=== PATIENT | male | born 1950 | race Hispanic/Latino ===

== ENCOUNTER 2022-01-09 13:55 | Emergency (ER) | payer MEDICARE, OTHER ==
--- OUTSIDE RECORDS SUMMARY | 2022-01-09 13:58 | XMS REPORT | Continuity of Care Document ---
:1950 Author Organization [facility] t Address [address] [place] [address] Care Team Providers Name Role Phone Lab, Adc Fam Pob I Attending Clinician Unavailable Vasu Love Attending Clinician VASU PAEZ Attending Clinician Unavailable Rosanna Jones Attending Clinician ROSANNA NUÑEZ Attending Clinician Unavailable Doctor Unassigned, [place] Attending Clinician Unavailable Payers Payer Name Policy Type Policy Number Effective Date Expiration Date S ource Problems This patient has no known problems. Allergies, Adverse Reactions, Alerts Allergy Allergy Status Severity Reaction(s) Onset Inactive Treating Comm ents Source Name Type Date Date Clinician NO KNOWN Drug Active Univers ALLERGIE Class ity of [facility] Social History Social Habit Start Date Stop Date Quantity Comments Source [facility] to [facility]-CoV-2 [facility] sure [facility] At [facility] Smoking Status Start Date Stop Date Source Never smoker [facility] Medications Ordered Filled Start Stop Current Ordering Indication Dosage Frequency Signature Comments Components Source Medication Medication Date Date Medication? Clinician (SIG) Name Name metroNIDAZO 2016- Yes 500mg Take 1 Uni vers LE 500 mg 8-30 tablet by ity o f tablet 00:00: mouth (two) Medical times Branch daily. traMADOL 50 Yes 50mg Take 1 Univ ers mg tablet 8-30 tablet by ity o f 00:00: mouth 00 every 6 Medical (six) Branch hours as needed (pain not relieved by acetaminop hen). metroNIDAZO 2016-0 Yes 500mg Take 1 Uni vers LE 500 mg 8-30 tablet by ity o f tablet 00:00: mouth 2 (two) Medical times Branch daily. traMADOL 50 2016- Yes 50mg Take 1 Univ ers mg tablet 8-30 tablet by ity o f 00:00: mouth [place] 00 every 6 Medical (six) Branch hours as needed (pain not relieved by acetaminop hen). metroNIDAZO 2017-0 Yes 500mg Take 1 Uni vers LE 500 mg 8-30 tablet by ity o f tablet 00:00: mouth 2 [place] 00 (two) Medical times Branch daily. traMADOL 50 2017-0 Yes 50mg Take 1 Univ ers mg tablet 8-30 tablet by ity o f 00:00: mouth [place] 00 every 6 Medical (six) Branch hours as needed (pain not relieved by acetaminop hen). metFORMIN 2017 Yes 1000mg Take 1,000 Univers 1,000 mg 7-06 mg by ity of tablet 14:53: mouth 2 [place] 08 (two) Medical times Branch daily with meals. triamterene Yes 1{tbl} Take 1 Un sayra -hydrochlor 7-06 tablet by ity of othiazid 14:53: mouth [place] 37.5-25 mg 08 daily. Medical tablet Branch CALCIUM Yes Take by Univers CARBONATE/V 7-06 mouth. ity of ITAMIN D3 14:53: [place] (VITAMIN 08 Medical D-3 ORAL) Branch vitamin Yes 1000ug Take 1,000 Un sayra B-12 1,000 7-06 mcg by ity of mcg tablet 14:53: mouth [place] 08 daily. Medical Branch metFORMIN Yes 1000mg Take 1,000 Univers 1,000 mg 7-06 mg by ity of tablet 14:53: mouth 2 08 (two) Medical times Branch daily with meals. triamterene 2016- Yes 1{tbl} Take 1 Un sayra -hydrochlor 7-06 tablet by ity of othiazid 14:53: mouth [place] 37.5-25 mg 08 daily. Medical tablet Branch CALCIUM 0 Yes Take by Univers CARBONATE/V 7-06 mouth. ity of ITAMIN D3 14:53: [place] (VITAMIN 08 Medical D-3 ORAL) Branch vitamin 20170 Yes 1000ug Take 1,000 Un sayra B-12 1,000 7-06 mcg by ity of mcg tablet 14:53: mouth [place] 08 daily. Medical Branch metFORMIN Yes 1000mg Take 1,000 Univers 1,000 mg 7-06 mg by ity of tablet 14:53: mouth 2 [place] 08 (two) Medical times Branch daily with meals. triamterene 2017 Yes 1{tbl} Take 1 Un sayra -hydrochlor 7-06 tablet by ity of othiazid 14:53: mouth [place] 37.5-25 mg 08 daily. Medical tablet Branch CALCIUM Yes Take by Univers CARBONATE/V 7-06 mouth. ity of ITAMIN D3 14:53: [place] (VITAMIN 08 Medical D-3 ORAL) Branch vitamin Yes 1000ug Take 1,000 Un sayra B-12 1,000 7-06 mcg by ity of mcg tablet 14:53: mouth [place] 08 daily. Medical Branch isosorbide Yes 30mg Take 30 mg U nivers mononitrate 7-06 by mouth. ity of 30 mg 24 hr 14:53: [place] tablet Medical Branch Levothyroxi Yes Take by Uni vers ne 125 mcg 7-06 mouth. ity of capsule 14:53: [address] lisinopril Yes 20mg Take 20 mg U nivers 20 mg 7-06 by mouth ity of tablet 14:53: daily. [address] Branch lovastatin Yes 20mg Take 20 mg U nivers 20 mg 7-06 by mouth ity of tablet 14:53: at [place] [address] bedtime. Medical Branch Fenofibrate Yes Take by Uni vers 160 mg 7-06 mouth. ity of tablet 14:53: [address] Branch glimepiride Yes 2mg Take 2 mg U nivers 2 mg tablet 7-06 by mouth ity of 14:53: daily with [place] [address] breakfast. Medical Branch isosorbide Yes 30mg Take 30 mg U nivers mononitrate 7-06 by mouth. ity of 30 mg 24 hr 14:53: [place] tablet [address] [place] [address] Branch Levothyroxi Yes Take by Uni vers ne 125 mcg 7-06 mouth. ity of capsule 14:53: [address] lisinopril 2016- Yes 20mg Take 20 mg U nivers 20 mg 7-06 by mouth ity of tablet 14:53: daily. [address] lovastatin 0 Yes 20mg Take 20 mg U nivers 20 mg 7-06 by mouth ity of tablet 14:53: at [place] [address] bedtime. Medical Branch Fenofibrate Yes Take by Uni vers 160 mg 7-06 mouth. ity of tablet 14:53: Medical Branch glimepiride 2016- Yes 2mg Take 2 mg U nivers 2 mg tablet 7-06 by mouth ity of 14:53: daily with breakfast. Medical Branch isosorbide 2017 Yes 30mg Take 30 mg U nivers mononitrate 706 by mouth. ity of 30 mg 24 hr 14:53: [place] tablet Medical Branch Levothyroxi Yes Take by Uni vers ne 125 mcg 7-06 mouth. ity of capsule 14:53: Medical Branch lisinopril Yes 20mg Take 20 mg U nivers 20 mg 7-06 by mouth ity of tablet 14:53: daily. Medical Branch lovastatin Yes 20mg Take 20 mg U nivers 20 mg 7-06 by mouth ity of tablet 14:53: at [place] [address] bedtime. Medical Branch Fenofibrate Yes Take by Uni vers 160 mg 7-06 mouth. ity of tablet 14:53: Medical Branch glimepiride Yes 2mg Take 2 mg U nivers 2 mg tablet 7-06 by mouth ity of 14:53: daily with breakfast. Medical Branch aspirin 325 Yes 325mg Take 325 U nivers mg tablet 7-06 mg by ity of 14:53: mouth [place] 06 daily. Medical Branch clopidogrel Yes 75mg Take 75 mg Univers 75 mg 7-06 by mouth ity of tablet 14:53: daily. Medical Branch aspirin 325 2017 Yes 325mg Take 325 U nivers mg tablet 7-06 mg by ity of 14:53: mouth [place] 06 daily. Medical Branch clopidogrel 2017 Yes 75mg Take 75 mg Univers 75 mg 7-06 by mouth ity of tablet 14:53: daily. Medical Branch aspirin 325 20170 Yes 325mg Take 325 U nivers mg tablet 7-06 mg by ity of 14:53: mouth [place] 06 daily. Medical Branch clopidogrel Yes 75mg Take 75 mg Univers 75 mg 7-06 by mouth ity of tablet 14:53: daily. Medical Branch diclofenac 20170 Yes 75mg Take 1 Unive rs 75 mg EC 7-06 tablet by ity of tablet 00:00: mouth 2 (two) Medical times Branch daily with meals. diclofenac 2017-0 Yes 75mg Take 1 Unive rs 75 mg EC 7-06 tablet by ity of tablet 00:00: mouth 2 (two) Medical times Branch daily with meals. diclofenac 2017-0 Yes 75mg Take 1 Unive rs 75 mg EC 7-06 tablet by ity of tablet 00:00: mouth 2 (two) Medical times Branch daily with meals. Procedures This patient has no known procedures. Encounters Start End Encounter Admission Attending Care Care Encounter Source Date/Time Date/Time Type Type Clinicians Facility Department ID 2020-05-20 2020-05-20 Laboratory Lab, [facility] 1.2. [id number] Univers 15:22:09 15:42:09 Only Vasu Paez [employer] [id number] ity of [place] [id number] [place] as Professio [id number] Ma dic[address] 2020-05-20 2020-05-20 Outpatient [facility] [id number] Univers 15:20:00 15:20:00 [id number] ity [facility] 2020-05-20 2020-05-20 [facility] [id number] Univers 15:20:00 15:20:00 VASU [facility] 2020-02-28 2020-02-28 Laboratory Lab, [facility] Fam Po I [facility] 1.2. [id number] Univers 08:56:10 09:16:10 Only RcTereRosanna [employer] [id number] ity of [place] 4.2.7.2.686 [place] as Professio [phone] Ma dical nal [address] 2020-02-28 2020-02-28 Outpatient [facility] [id number] Univers 09:00:00 09:00:[id number] [facility] 2020-02-28 Outpatient R [facility] [id number] Univers 09:00:00 09:00:00 [facility] 2020-02-28 2020-02-28 Letter Doctor ANKITA [id number] 00:00:00 00:00:00 (Out) Unassigned, KHANH 350.1.13.10 ity of [place] [facility] 4.2.7.2.686 [place] as [phone] [address] Results Test Description Test Time Test Comments Results Result Comments Source PSA, TOTAL 2021-11-03 06:37:18 Test Item Value Reference Range Interpretation Comme nts PSA, TOTAL (test code 2.83 NG/ML See_Comment NOTE: Methodology is Aleks Marlene = 2606) Electrochemilum inescence Immunoassay traceable to O reference standard 96/760. UNLESS OTHERWISE INDICATED, ALL TESTING PERFORM ED [facility], [facility]. [address] [place] [address] [employer] DIRECTOR: LARY DOUGLAS M.D. CLIA NUMBER [id number] CAP ACCREDITATI ON NO. [Automated mess age] The system which generated this result transmitted reference range : <=4.00. The reference range was not u sed to interpret this result as tina l/abnormal. OCCULT BLD,FECAL,IMMUNOASSAY [id number] 09:49:41 Test Item Value Reference Range Interpretation Comments OCCULT BLD, FECAL NEGATIVE NEGATIVE UNLESS OT HERWISE (test code = 09960) INDICATE D, ALL TESTING PERFORMED [facility] PATHOLOGY [employer] [facility]. [address] [place] [address] [employer] DIRECTOR: LARY DOUGLAS M.D. CLIA NUMBER [id number] CAP ACCREDITATION N O. [id number] VITAMIN [id number] 06:32:49 Test Item Value Reference Range Interpretation Comments VITAMIN B-12 (test 693 PG/ML 200-950 UNLESS O THERWISE code = 2840) INDICATED, ALL TESTING PERFORMED [facility] [employer]. [address] [place] [address] [employer] T[place] DIRECTOR: LARY DOUGLAS M.D. CLIA NUMBER [id number] CAP ACCREDITATION N O. [id number] CBC W/AUTO DIFF WITH [id number] 06:29:27 Test Item Value Reference Range Interpretation Comments WBC (test code = 7.1 K/UL 3.5-11.0 1001) RBC (test code = 4.39 M/UL 4.50-6.10 L 1002) HEMOGLOBIN (test code 12.6 G/DL 13.5-17.0 L = 1003) HEMATOCRIT (test code 37.1 % 40.0-51.0 L = 1004) MCV (test code = 84.5 fL 80.0-99.0 1005) MCH (test code = 28.7 PG 25.0-33.0 1006) MCHC (test code = 34.0 G/DL 31.0-36.0 1007) RDW (test code = 12.9 % 11.5-15.0 1038) NEUTROPHILS (test 53.9 % code = 1008) LYMPHOCYTES (test 34.8 % code = 1010) MONOCYTES (test code 8.6 % = 1011) EOSINOPHILS (test 1.6 % code = 1012) BASOPHILS (test code 0.8 % = 1013) IMMATURE GRANULOCYTES 0.3 % (test code = 1036) NUCLEATED RBCS (test 0.0 /100 WBC'S See_Comment [Aut omated code = 1065) message] The sy stem which generated this result transmitted reference range : 0.0. The refere nce range was not u sed to interpret th is result as normal/abnormal . PLATELET COUNT (test 237 K/UL 130-400 code = 1015) ABSOLUTE NEUTROPHILS 3.82 K/UL 1.50-7.50 (test code = 1066) ABSOLUTE LYMPHOCYTES 2.47 K/UL 1.00-4.00 (test code = 1067) ABSOLUTE MONOCYTES 0.61 K/UL 0.20-1.00 (test code = 1068) ABSOLUTE EOSINOPHILS 0.11 K/UL 0.00-0.50 (test code = 1040) ABSOLUTE BASOPHILS 0.06 K/UL 0.00-0.20 (test code = 1069) ABS IMMATURE 0.02 K/UL 0.00-0.10 GRANULOCYTES (test code = 1020) ABS NUCLEATED RBCS 0.00 K/UL 0.00-0.11 (test code = 05432)
[2022-01-09] MEDS ORDERED: HYDROCODONE/APAP 7.5/325 MG TAB ONE (14:53)
--- NOTE | 2022-01-09 14:59 | RAD REPORT ---
EXAM DESCRIPTION: RAD - Knee Right 3 View - 01/09/2022 2:35 pm CLINICAL HISTORY: Right knee pain FINDINGS: No fracture or dislocation is seen. Mild to moderate osteoarthritis medial compartment consisting of osteophytes and joint space narrowin g
--- NOTE | 2022-01-09 15:05 | ER ---
Nurse's Notes [facility] Name: Atilio Levy Jr Age: 71 yrs Sex: Male : 1950 Arrival Date: 01/09/2022 Time: 14:01 Bed 11 Private MD: Joe Lopez R Diagnosis: Pain in right knee Presentation: 01/09 14:10 Chief complaint: Patient states: my right knee is acting up X 2 weeks but now the pain iw is moving up to my hip , previous knee surgery ten years ago. Coronavirus screen: At this time, the client does not indicate any symptoms associated with coronavirus-19. Ebola Screen: Patient negative for fever greater than or equal to 101.5 degrees Fahrenheit, and additional compatible Ebola Virus Disease symptoms Patient denies exposure to infectious person. Patient denies travel to an Ebola-affected area in the 21 days before illness onset. No symptoms or risks identified at this time. Initial Sepsis Screen: Does the patient meet any 2 criteria? No. Patient's initial sepsis screen is negative. Does the patient have a suspected source of infection? No. Patient's initial sepsis screen is negative. Risk Assessment: Do you want to hurt yourself or someone else? Patient reports no desire to harm self or others. Onset of symptoms was December 27, 2021. 14:10 Method Of Arrival: Ambulatory iw 14:10 Acuity: NESTOR 4 iw Historical: - Allergies: 14:12 No Known Allergies; iw - PMHx: 14:12 Diabetes mellitus; Hypertensive disorder; Hypothyroidism; iw - PSHx: 14:12 Cholecystectomy; iw 14:13 heart stent; iw - Immunization history:: Client reports receiving the 2nd dose of the Covid vaccine. - Social history:: Smoking status: . Screenin:17 Abuse screen: Denies threats or abuse. Denies injuries from another. Nutritional iw screening: No deficits noted. Tuberculosis screening: No symptoms or risk factors identified. Fall Risk None identified. Assessment: 14:17 General: Appears in no apparent distress. Behavior is calm, cooperative. Pain: iw Complains of pain in right leg. Neuro: Level of Consciousness is awake, alert, obeys commands, Oriented to person, place, time, situation, Moves all extremities. Respiratory: Respiratory effort is even, unlabored, Respiratory pattern is regular. Vital Signs: 14:13 BP 121 / 86; Pulse 80; Resp 16; Pulse Ox 100% on R/A; iw ED Course: 14:01 Patient arrived in ED. am2 14:01 Joe Lopez MD is Private Physician. am2 14:12 Triage completed. iw 14:13 Ravi Means is PHCP. jl9 14:13 Syed Hawkins MD is Attending Physician. jl9 14:13 Neha Senior, RN is Primary Nurse. iw 14:13 Arm band placed on. iw 14:18 No provider procedures requiring assistance completed. Patient did not have IV access iw during this emergency room visit. 14:35 Knee Right 3 View In Process Unspecified. EDMS Administered Medications: 14:46 Drug: [place] (HYDROcodone-acetaminophen) (7.5 mg-325 mg) 1 tabs Route: PO; iw Outcome: 15:05 Discharge ordered by . jl9 15:54 Patient left the ED. iw Signatures: Dispatcher [employer] EDMS Neha Senior, RN RN iw Sonam Joaquin am2 Ravi Means jl9 Corrections: (The following items were deleted from the chart) 14:13 14:12 PMHx: None; iw iw
--- NOTE | 2022-01-09 15:05 | EDPHYS ---
Physician Documentation [facility] Name: Atilio Levy Jr Age: 71 yrs Sex: Male : 1950 Arrival Date: 01/09/2022 Time: 14:01 Bed 11 Private MD: Joe Lopez R ED Physician Syed Hawkins HPI: 01/09 14:59 This 71 yrs old Male presents to ER via Ambulatory with complaints of Right jl9 leg pain x numerous months. Patient denies any trauma. history of knee surgeries. . 14:59 The patient presents with decreased range of motion, pain. The complaints affect the jl9 lateral aspect of right knee. Context: the patient is able to ambulate. Onset: The symptoms/episode began/occurred 1 month(s) ago. Modifying factors: the symptoms are aggravated by movement. Associated signs and symptoms: Pertinent positives: Pertinent negatives calf tenderness, numbness, swelling. Severity of symptoms: in the emergency department the symptoms a " 3" out of "10". Historical: - Allergies: 14:12 No Known Allergies; iw - PMHx: 14:12 Diabetes mellitus; Hypertensive disorder; Hypothyroidism; iw - PSHx: 14:12 Cholecystectomy; iw 14:13 heart stent; iw - Immunization history:: Client reports receiving the 2nd dose of the Covid vaccine. - Social history:: Smoking status: . ROS: 15:02 Constitutional: Negative for fever, chills, and weight loss. jl9 15:02 Eyes: Negative for injury, pain, redness, and discharge, ENT: Negative for injury, pain, and discharge, Neck: Negative for injury, pain, and swelling, Cardiovascular: Negative for chest pain, palpitations, and edema, Respiratory: Negative for shortness of breath, cough, wheezing, and pleuritic chest pain, Abdomen/GI: Negative for abdominal pain, nausea, vomiting, diarrhea, and constipation, Back: Negative for injury and pain, : Negative for injury, bleeding, discharge, and swelling. 15:02 Skin: Negative for injury, rash, and discoloration, Neuro: Negative for headache, weakness, numbness, tingling, and seizure, Psych: Negative for depression, anxiety, suicide ideation, homicidal ideation, and hallucinations, Allergy/Immunology: Negative for hives, rash, and allergies, Endocrine: Negative for neck swelling, polydipsia, polyuria, polyphagia, and marked weight changes, Hematologic/Lymphatic: Negative for swollen nodes, abnormal bleeding, and unusual bruising. 15:02 MS/extremity: Positive for pain. Exam: 15:03 Constitutional: This is a well developed, well nourished patient who is awake, alert, jl9 and in no acute distress. Head/Face: Normocephalic, atraumatic. Eyes: Pupils equal round and reactive to light, extra-ocular motions intact. Lids and lashes normal. Conjunctiva and sclera are non-icteric and not injected. Cornea within normal limits. Periorbital areas with no swelling, redness, or edema. ENT: Mucous membranes moist. Neck: Trachea midline, no thyromegaly or masses palpated, and no cervical lymphadenopathy. Supple, full range of motion without nuchal rigidity, or vertebral point tenderness. No Meningismus. Chest/axilla: Normal chest wall appearance and motion. Nontender with no deformity. No lesions are appreciated. Cardiovascular: Regular rate and rhythm with a normal S1 and S2. No gallops, murmurs, or rubs. Normal PMI, no JVD. No pulse deficits. Respiratory: Lungs have equal breath sounds bilaterally, clear to auscultation and percussion. No rales, rhonchi or wheezes noted. No increased work of breathing, no retractions or nasal flaring. Abdomen/GI: Soft, non-tender, with normal bowel sounds. No distension or tympany. No guarding or rebound. No evidence of tenderness throughout. Back: No spinal tenderness. No costovertebral tenderness. Full range of motion. Skin: Warm, dry with normal turgor. Normal color with no rashes, no lesions, and no evidence of cellulitis. MS/ Extremity: Pulses equal, no cyanosis. Neurovascular intact. Full, normal range of motion. Neuro: Awake and alert, GCS 15, oriented to person, place, time, and situation. Cranial nerves II-XII grossly intact. Motor strength 5/5 in all extremities. Sensory grossly intact. Cerebellar exam normal. Normal gait. Psych: Awake, alert, with orientation to person, place and time. Behavior, mood, and affect are within normal limits. Vital Signs: 14:13 BP 121 / 86; Pulse 80; Resp 16; Pulse Ox 100% on R/A; iw MDM: 14:13 Patient medically screened. jl9 15:04 Data reviewed: vital signs, nurses notes, radiologic studies. Counseling: I had a jl9 detailed discussion with the patient and/or guardian regarding: the historical points, exam findings, and any diagnostic results supporting the discharge/admit diagnosis, the need for outpatient follow up, to return to the emergency department if symptoms worsen or persist or if there are any questions or concerns that arise at home. 01/09 14:35 Order name: Knee Right 3 View; Complete Time: 14:59 EDMS Administered Medications: 14:46 Drug: [place] (HYDROcodone-acetaminophen) (7.5 mg-325 mg) 1 tabs Route: PO; iw Disposition Summary: 01/09/22 15:05 Discharge Ordered Location: Home jl9 Condition: Stable jl9 Diagnosis - Pain in right knee jl9 Followup: jl9 - With: Private Physician - When: 1 - 2 days - Reason: Recheck today's complaints, Continuance of care, Re-evaluation by your physician Discharge Instructions: - Discharge Summary Sheet jl9 - Chronic Knee Pain, Adult, [id number] jl9 Forms: - Medication Reconciliation Form jl9 - Thank You Letter jl9 - Antibiotic Education jl9 - Prescription Opioid Use jl9 Prescriptions: - Tramadol 50 mg Oral Tablet - take 1 tablet by ORAL route every 8 hours as needed; 12 tablet; Refills: 0, jl9 Product Selection Permitted Signatures: Dispatcher [employer] Neha Stearns RN RN iw Ravi Means jl9 Corrections: (The following items were deleted from the chart) 14:13 14:12 PMHx: None; iw iw 14:35 14:14 Knee Left 3 View+RAD.RAD.BRZ ordered. EDMS EDMS 14:37 14:36 Knee Right 3 View+RAD.RAD.BRZ ordered. EDMS EDMS
[2022-01-09 15:58] VITALS: BP 121/86; O2SAT 100
== END 2022-01-09 15:54 | disposition home or self-care (01) ==
LOC: ER 13:55
DX: M25.561 Pain in right knee (principal); E11.9 Type 2 diabetes mellitus without complications; I10 Essential (primary) hypertension
CPT/HCPCS: 99283